=== PATIENT | female | born 1940 | race Caucasian/White ===

== ENCOUNTER → 2023-12-03 15:23 | Outpatient (REF) | payer MEDICARE, OTHER, SELFPAY | LOC: CLAB 15:23 | PROVIDERS: ATTENDING PHYSICIAN Specialist | DX: C67.9 Malignant neoplasm of bladder, unspecified (principal) | CPT/HCPCS: 88112 ==

== ENCOUNTER → 2023-12-22 11:24 | Outpatient (REF) | payer MEDICARE, OTHER, SELFPAY ==
[2023-12-22 13:42] LABS: % Basophils 1.5 % (0-2); % Eosinophils 4.5 % (0-6); % Immature Granulocytes 0.3 % (0-0.5); % Lymphocytes 34.8 % (20.5-51.1); % Monocytes 9.7 % (1.7-9.3); % Neutrophils 49.2 % (42.2-75.2); Absolute Basophils 0.1 10^3/uL (0-0.2); Absolute Eosinophils 0.4 10^3/uL (0-0.7); Absolute Lymphocytes 2.7 10^3/uL (1.2-3.4); Absolute Monocytes 0.8 10^3/uL (0.1-0.6); Absolute Neutrophils 3.9 10^3/uL (1.4-6.5); Hematocrit 40.3 % (37.0-47.0); Hemoglobin 12.9 g/dL (12.0-16.0); Mean Corpuscular Hgb 29.1 pg (27.0-31.0); Mean Corpuscular Volume 90.8 fL (81.0-99.0); Mean Platelet Volume 10.6 fL (7.4-10.4); Nucleated Red Blood Cells % 0 %; Platelet Count 278 10^3/uL (130-400); Red Blood Cell Count 4.44 10^6/uL (4.20-5.40); Red Cell Dist. Width 14.2 % (11.5-14.5); White Blood Cell Count 7.8 10^3/uL (4.8-10.8)
[2023-12-22 14:15] LABS: ALT (SGPT) < 10 U/L (0-35); AST (SGOT) 22 U/L (14-36); Albumin 4.3 g/dl (3.5-5.0); Alkaline Phosphatase 77 U/L (38-126); Blood Urea Nitrogen 20 mg/dl (7-17); Calcium 10.6 mg/dl (8.4-10.2); Carbon Dioxide 29 mmol/L (22-30); Chloride 99 mmol/L (98-107); Glucose 97 mg/dl (70-99); HDL Cholesterol 103 mg/dl; LDL Cholesterol, Calculated 81 mg/dl; Potassium 3.8 mmol/L (3.5-5.1); Sodium 136 mmol/L (135-145); Total Bilirubin 0.7 mg/dl (0.2-1.3); Total Cholesterol 207 mg/dl (50-199); Total Protein 7.4 g/dl (6.3-8.2); Triglyceride 115 mg/dl (10-149); Very Low Density Lipoprotein 23 mg/dl (0-30); eGFR > 60.00
[2023-12-22 14:40] LABS: TSH Reflex To Free T4 2.84 uIU/ml (0.47-4.68)
== END ==
LOC: REG 11:24
PROVIDERS: ATTENDING PHYSICIAN Nurse Practitioner Family
DX: Z00.00 Encounter for general adult medical examination without abnormal findings (principal); E78.5 Hyperlipidemia, unspecified; K21.9 Gastro-esophageal reflux disease without esophagitis
CPT/HCPCS: 36415; 80053; 80061; 84443; 85025

== ENCOUNTER → 2024-01-28 17:38 | Outpatient (REF) | payer MEDICARE, OTHER, SELFPAY ==
[2024-01-28 18:30] LABS: Urine Albumin 1+ (Neg - Trace); Urine Bilirubin Negative (Negative); Urine Character Slightly Cloudy (Clear); Urine Color Amber; Urine Glucose Negative (Negative); Urine Ketone Trace (Negative); Urine Leukocyte 1+ (Negative); Urine Nitrite Negative (Negative); Urine Occult Blood 4+ (Negative); Urine Urobilinogen Negative (Neg - 1+)
[2024-01-28 19:28] LABS: Urine Red Blood Cell >100 /HPF (0-2); Urine White Cell >100 /HPF (0-5)
[2024-01-28 19:29] LABS: Urine Bacteria Few (Negative)
== END ==
LOC: CLAB 17:38
PROVIDERS: ATTENDING PHYSICIAN Specialist
DX: N39.0 Urinary tract infection, site not specified (principal)
CPT/HCPCS: 81003; 81015; 87086

== ENCOUNTER → 2024-02-23 11:27 | Outpatient (REF) | payer MEDICARE, OTHER, SELFPAY | LOC: WDC 11:27 | PROVIDERS: ATTENDING PHYSICIAN Family Medicine | DX: Z12.31 Encounter for screening mammogram for malignant neoplasm of breast (principal) | CPT/HCPCS: 77063; 77067 ==

== ENCOUNTER → 2024-03-08 11:28 | Outpatient (REF) | payer MEDICARE, OTHER, SELFPAY | LOC: RAD 11:28 | PROVIDERS: ATTENDING PHYSICIAN Family Medicine | DX: Z78.0 Asymptomatic menopausal state (principal) | CPT/HCPCS: 77080 ==

== ENCOUNTER → 2025-03-08 13:44 | Outpatient (REF) | payer MEDICARE, OTHER, SELFPAY ==
[2025-03-08 15:57] LABS: % Basophils 1.3 % (0-2); % Eosinophils 3.8 % (0-6); % Immature Granulocytes 0.3 % (0-0.5); % Lymphocytes 30.7 % (20.5-51.1); % Monocytes 8.7 % (1.7-9.3); % Neutrophils 55.2 % (42.2-75.2); Absolute Basophils 0.1 10^3/uL (0-0.2); Absolute Eosinophils 0.3 10^3/uL (0-0.7); Absolute Lymphocytes 2.7 10^3/uL (1.2-3.4); Absolute Monocytes 0.8 10^3/uL (0.1-0.6); Absolute Neutrophils 4.8 10^3/uL (1.4-6.5); Hematocrit 39.3 % (37.0-47.0); Mean Corp Hgb Conc. 33.1 g/dL (33.0-37.0); Mean Corpuscular Hgb 29.5 pg (27.0-31.0); Mean Corpuscular Volume 89.1 fL (81.0-99.0); Mean Platelet Volume 10.8 fL (7.4-10.4); Nucleated Red Blood Cells % 0 %; Platelet Count 309 10^3/uL (130-400); Red Blood Cell Count 4.41 10^6/uL (4.20-5.40); Red Cell Dist. Width 13.7 % (11.5-14.5); White Blood Cell Count 8.7 10^3/uL (4.8-10.8)
[2025-03-08 16:19] LABS: ALT (SGPT) < 10 U/L (0-35); AST (SGOT) 19 U/L (14-36); Albumin 4.4 g/dl (3.5-5.0); Alkaline Phosphatase 61 U/L (38-126); Blood Urea Nitrogen 30 mg/dl (7-17); Calcium 10.8 mg/dl (8.4-10.2); Carbon Dioxide 27 mmol/L (22-30); Chloride 104 mmol/L (98-107); Glucose 96 mg/dl (70-99); HDL Cholesterol 81 mg/dl; LDL Cholesterol, Calculated 106 mg/dl; Potassium 4.2 mmol/L (3.5-5.1); Sodium 140 mmol/L (135-145); Total Bilirubin 0.6 mg/dl (0.2-1.3); Total Cholesterol 213 mg/dl (50-199); Total Protein 7.9 g/dl (6.3-8.2); Triglyceride 131 mg/dl (10-149); Very Low Density Lipoprotein 26 mg/dl (0-30); eGFR 44.64
[2025-03-08 16:48] LABS: TSH Reflex To Free T4 3.64 uIU/ml (0.47-4.68)
[2025-03-09 08:46] LABS: Glycohemoglobin (HgbA1c) 5.8 % (4.0-5.6)
== END ==
LOC: WDC 13:44
PROVIDERS: ATTENDING PHYSICIAN Family Medicine
DX: Z12.31 Encounter for screening mammogram for malignant neoplasm of breast (principal); I10 Essential (primary) hypertension; R73.9 Hyperglycemia, unspecified; E78.2 Mixed hyperlipidemia
CPT/HCPCS: 36415; 77063; 77067; 80053; 80061; 83036; 84443; 85025

== ENCOUNTER → 2025-04-13 12:51 | Outpatient (REF) | payer MEDICARE, OTHER, SELFPAY ==
[2025-04-13 15:35] LABS: Blood Urea Nitrogen 38 mg/dl (7-17); Calcium 9.9 mg/dl (8.4-10.2); Carbon Dioxide 26 mmol/L (22-30); Chloride 98 mmol/L (98-107); Glucose 101 mg/dl (70-99); Potassium 4.1 mmol/L (3.5-5.1); Sodium 133 mmol/L (135-145); eGFR 44.64
== END ==
LOC: RCS 12:51
PROVIDERS: ATTENDING PHYSICIAN Family Medicine
DX: I34.0 Nonrheumatic mitral (valve) insufficiency (principal); I35.0 Nonrheumatic aortic (valve) stenosis
CPT/HCPCS: 36415; 80048; 93306

== ENCOUNTER → 2025-05-03 12:47 | Outpatient (REF) | payer MEDICARE, OTHER, SELFPAY | LOC: RAD 12:47 | PROVIDERS: ATTENDING PHYSICIAN Family Medicine | DX: N28.9 Disorder of kidney and ureter, unspecified (principal) | CPT/HCPCS: 76770 ==

== ENCOUNTER → 2025-05-23 13:52 | Outpatient (REF) | payer MEDICARE, OTHER, SELFPAY ==
[2025-05-23 14:57] LABS: ALT (SGPT) < 10 U/L (0-35); AST (SGOT) 23 U/L (14-36); Albumin 4.6 g/dl (3.5-5.0); Alkaline Phosphatase 60 U/L (38-126); Blood Urea Nitrogen 30 mg/dl (7-17); Calcium 10.6 mg/dl (8.4-10.2); Carbon Dioxide 25 mmol/L (22-30); Chloride 98 mmol/L (98-107); Glucose 105 mg/dl (70-99); Potassium 4.2 mmol/L (3.5-5.1); Sodium 133 mmol/L (135-145); Total Protein 7.9 g/dl (6.3-8.2); eGFR 44.64
== END ==
LOC: RAD 13:52
PROVIDERS: ATTENDING PHYSICIAN Specialist; FAMILY PHYSICIAN Family Medicine
DX: E83.52 Hypercalcemia (principal); C67.9 Malignant neoplasm of bladder, unspecified; N13.9 Obstructive and reflux uropathy, unspecified
CPT/HCPCS: 36415; 74176; 80053; 83970

== ENCOUNTER → 2025-05-30 13:25 | Outpatient (REF) | payer MEDICARE, OTHER, SELFPAY ==
[2025-05-30 14:42] LABS: Hematocrit 36.7 % (37.0-47.0); Hemoglobin 12.4 g/dL (12.0-16.0); Mean Corp Hgb Conc. 33.8 g/dL (33.0-37.0); Mean Corpuscular Volume 88.6 fL (81.0-99.0); Platelet Count 341 10^3/uL (130-400); Red Cell Dist. Width 13.6 % (11.5-14.5)
== END ==
LOC: SDSPAT 13:25
PROVIDERS: ATTENDING PHYSICIAN Specialist; FAMILY PHYSICIAN Family Medicine
DX: Z01.818 Encounter for other preprocedural examination (principal)
CPT/HCPCS: 36415; 85027; 93005

== ENCOUNTER 2025-06-06 06:20 | Day surgery (SDC) | payer MEDICARE, OTHER, SELFPAY ==
[2025-05-30 14:10] VITALS: BMI 31.2
[2025-06-06] VITALS (7 sets, daily range): BP systolic 117–152; BP diastolic 65–91; BMI 31.2
[2025-06-06] MEDS: NORMOSOL-R/PLASMALYTE-A 1000 IV (09:46)
[2025-06-06] MEDS: SYRINGE NON-PUMP 50 ML IRRIG ×2 (14:23→14:24)
[2025-06-06] MEDS: SYRINGE NON-PUMP 50 MG IRRIG ×2 (14:23→14:24)
[2025-06-06] MEDS: DETROL LA 4 MG PO (15:15)
== END 2025-06-06 16:17 | disposition home or self-care (01) ==
LOC: SDS 06:20
PROVIDERS: ATTENDING PHYSICIAN Specialist
DX: C66.2 Malignant neoplasm of left ureter (principal); C67.9 Malignant neoplasm of bladder, unspecified; N13.2 Hydronephrosis with renal and ureteral calculous obstruction
CPT/HCPCS: 51720; C9738; 74420; 76000; 88307; C2617; J9201

== ENCOUNTER → 2025-06-12 10:59 | Outpatient (REF) | payer MEDICARE, OTHER, SELFPAY ==
[2025-06-12 12:03] LABS: ALT (SGPT) < 10 U/L (0-35); AST (SGOT) 17 U/L (14-36); Albumin 4.2 g/dl (3.5-5.0); Alkaline Phosphatase 55 U/L (38-126); Blood Urea Nitrogen 30 mg/dl (7-17); Calcium 10.5 mg/dl (8.4-10.2); Carbon Dioxide 30 mmol/L (22-30); Chloride 97 mmol/L (98-107); Glucose 109 mg/dl (70-99); Potassium 3.5 mmol/L (3.5-5.1); Sodium 134 mmol/L (135-145); Total Protein 7.4 g/dl (6.3-8.2); eGFR 40.30
== END ==
LOC: REG 10:59
PROVIDERS: ATTENDING PHYSICIAN Specialist
DX: C67.6 Malignant neoplasm of ureteric orifice (principal); N18.1 Chronic kidney disease, stage 1
CPT/HCPCS: 36415; 80053

== ENCOUNTER 2025-06-27 06:12 | Inpatient (IN) | payer MEDICARE, OTHER, SELFPAY ==
[2025-06-27] VITALS (22 sets, daily range): BP systolic 20–135; BP diastolic 52–79; BMI 30.1
[2025-06-27] MEDS: NORMOSOL-R/PLASMALYTE-A 1000 IV (06:40)
[2025-06-27] MEDS: HEPARIN 5000 UNITS SC (06:41)
[2025-06-27] MEDS: DACRIOSE EYE WASH SOLUTION 1 ML OPHTH (15:39)
[2025-06-27] MEDS: COLACE PO (15:45)
[2025-06-27] MEDS: ASPIR LOW (ENTERIC COATED) 81 MG PO (16:05)
[2025-06-27] MEDS: COLACE 100 MG PO (17:04)
[2025-06-27] MEDS: LOVENOX 30 MG SC (17:04)
[2025-06-27] MEDS: TORADOL 15 MG IV ×2 (17:05→23:55)
[2025-06-27] MEDS: LIPITOR 20 MG PO (17:09)
--- NOTE | 2025-06-27 18:25 | PTCARENOTE ---
1500 Pt arrived from PACU. VSS. 2LO2. Pt complaining of being unable to open her eyes. Anesthesiologist made aware in PACU. stat eye irrigation and eye drops ordered. CBI infusing draining light pink urine. 5 lap sites covered with telfa, gauze and
tegaderm. R and L bandage with moderate drainiage. R sided MAGDALENA draining serosanguineous drainage. Oriented to room and call marvin. bed locked and in lowest position. daughter at the bedside.
[2025-06-27] MEDS: TYLENOL 650 MG PO (19:59)
[2025-06-28 03:06] VITALS: BP 99/53
[2025-06-28] MEDS: TORADOL 15 MG IV ×2 (05:42→13:03)
[2025-06-28 07:05] VITALS: BP 130/75
[2025-06-28 07:23] LABS: Hematocrit 28.8 % (37.0-47.0); Hemoglobin 9.4 g/dL (12.0-16.0); Mean Corp Hgb Conc. 32.6 g/dL (33.0-37.0); Mean Corpuscular Volume 95.4 fL (81.0-99.0); Nucleated Red Blood Cells % 0 %; Platelet Count 320 10^3/uL (130-400); Red Cell Dist. Width 14.7 % (11.5-14.5)
[2025-06-28 07:37] LABS: Blood Urea Nitrogen 28 mg/dl (7-17); Calcium 8.9 mg/dl (8.4-10.2); Carbon Dioxide 31 mmol/L (22-30); Chloride 100 mmol/L (98-107); Estimated Creatinine Clearance 36 ml/min; Glucose 93 mg/dl (70-99); Potassium 3.5 mmol/L (3.5-5.1); Sodium 133 mmol/L (135-145); eGFR 44.36
--- NOTE | 2025-06-28 08:10 | W.PN.URO.CBU ---
Today's Communication / Plan
-
ambulate
possible discharge today
Assessment / Plan
-
stable
Diagnosis
-
Date of Service: June 28, 2025
-
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
Post Op Day:
1
Subjective
-
'I'm not really feeling any pain.'
Objective
-
Vital Signs
Temp Pulse Resp BP Pulse Ox
97.8 F 82 17 99/53 96
06/28/25 03:06 06/28/25 03:06 06/28/25 03:06 06/28/25 03:06 06/28/25 03:06
Intake and Output
06/27/25 06/28/25 06/29/25
06:59 06:59 06:59
Intake Total 300 / 300
Output Total 755 / 755
Balance -455 / -455
Intake:
IV fluids (Total) 300 / 300
Normosol 300 / 300
Output:
Drain Output (Total) 155 / 155
Right Lower Abdomen Oscar- 155 / 155
Baker
True Urine Output from CBI 600 / 600
Laboratory Results
06/28/25 06:23
06/28/25 06:23
Review of Systems
-
Constitutional: No Symptoms
Respiratory: No Symptoms
Cardiac: No Symptoms
Physical Exam
-
General - well developed, well nourished, no acute distress
Chest - clear bilaterally
Abdomen - soft, no distention; drain --> removed
Genitalia - Pandey with pale outflow
Skin - warm & dry with no rash
Neuro - AOx3, no motor deficits
Extremities - no clubbing, no cyanosis, no edema
Dressings - clean, dry, intact
[2025-06-28] MEDS: ASPIR LOW (ENTERIC COATED) 81 MG PO (09:57)
[2025-06-28] MEDS: COLACE 100 MG PO ×2 (09:57→13:03)
[2025-06-28] MEDS: ORETIC 25 MG PO (10:12)
[2025-06-28] MEDS: COZAAR 50 MG PO (10:12)
[2025-06-28 11:40] VITALS: BP 106/57
--- NOTE | 2025-06-28 15:11 | CM ---
Chart reviewed and patient lives with daughter in a one story apartment is independent with adl's and uses a walker with ambulation. Patient has been cleared for discharge today. Plan is to home with visiting nurses, options reviewed and patient has
selected [facility]. referral sent to [facility].
PCP: Kim Gonzalez
Pharmacy: [facility] in [place]
Plan; Home with [facility].
--- NOTE | 2025-06-28 15:45 | VNURNOTE ---
Home Health Liaison spoke with patient to discuss [facility] nurse/therapy, visits, schedule and homebound status. Patient is agreeable and understands that visits at home will be 2-3 x per week to assess and teach medical and gauthier management.
Patient is aware that [facility] will contact them for start of care in 1-2 days after discharge from .
[facility] referral completed in [facility].
[2025-06-28] MEDS: COLACE PO (17:00)
== END 2025-06-28 19:21 | disposition home health service (06) | DRG 654 ==
LOC: 2 SOUTH 06:12
PROVIDERS: ADMITTING PHYSICIAN Specialist
PROC: 0TS74ZZ Reposition Left Ureter, Percutaneous Endoscopic Approach (ICD-10-PCS; 2025-06-27)
PROC: 0TB74ZZ Excision of Left Ureter, Percutaneous Endoscopic Approach (ICD-10-PCS; 2025-06-27)
PROC: 0TBB4ZZ Excision of Bladder, Percutaneous Endoscopic Approach (ICD-10-PCS; 2025-06-27)
PROC: 0DNW4ZZ Release Peritoneum, Percutaneous Endoscopic Approach (ICD-10-PCS; 2025-06-27)
PROC: 8E0W4CZ Robotic Assisted Procedure of Trunk Region, Percutaneous Endoscopic Approach (ICD-10-PCS; 2025-06-27)
DX: C66.2 Malignant neoplasm of left ureter (principal); N13.1 Hydronephrosis with ureteral stricture, not elsewhere classified; N13.8 Other obstructive and reflux uropathy; K66.0 Peritoneal adhesions (postprocedural) (postinfection); I12.9 Hypertensive chronic kidney disease with stage 1 through stage 4 chronic kidney disease, or unspecified chronic kidney disease; K21.9 Gastro-esophageal reflux disease without esophagitis; N73.6 Female pelvic peritoneal adhesions (postinfective); E78.00 Pure hypercholesterolemia, unspecified; E01.0 Iodine-deficiency related diffuse (endemic) goiter; M19.90 Unspecified osteoarthritis, unspecified site; N18.32 Chronic kidney disease, stage 3b; Z60.2 Problems related to living alone; Z79.82 Long term (current) use of aspirin; Z87.19 Personal history of other diseases of the digestive system; Z90.710 Acquired absence of both cervix and uterus
CPT/HCPCS: 80048; 85025; 86850; 86900; 86901; 88305; 88307; 88331; 88342; C2617

== ENCOUNTER → 2025-07-23 10:50 | Outpatient (REF) | payer MEDICARE, OTHER, SELFPAY ==
[2025-07-23 12:39] LABS: Blood Urea Nitrogen 22 mg/dl (7-17); Calcium 10.2 mg/dl (8.4-10.2); Carbon Dioxide 24 mmol/L (22-30); Chloride 104 mmol/L (98-107); Glucose 95 mg/dl (70-99); Potassium 4.6 mmol/L (3.5-5.1); Sodium 134 mmol/L (135-145); eGFR 49.24
== END ==
LOC: REG 10:50
PROVIDERS: ATTENDING PHYSICIAN Specialist; FAMILY PHYSICIAN Family Medicine
DX: C66.2 Malignant neoplasm of left ureter (principal); C67.6 Malignant neoplasm of ureteric orifice
CPT/HCPCS: 36415; 80048